=== PATIENT | male | born 1990 | race Two or more races ===

== ENCOUNTER 2021-06-12 20:28 | Emergency (ER) | payer MEDICAID, OTHER ==
[~2021-06-12] VITALS: Ht 175.3 cm; Wt 84.8 kg
[2021-06-13] MEDS ORDERED: BACITRACIN TOP OINT 1 UD PKG TOP ONE (02:00)
[2021-06-13 08:33] VITALS: BP 136/85
== END 2021-06-13 08:38 | disposition home or self-care (01) ==
LOC: ER 20:28
DX: S61.512A Laceration without foreign body of left wrist, initial encounter (principal); W25.XXXA Contact with sharp glass, initial encounter; Y93.89 Activity, other specified; Y92.89 Other specified places as the place of occurrence of the external cause; Y99.8 Other external cause status
CPT/HCPCS: 12002; 73110